=== PATIENT | male | born 1985 | race Caucasian/White ===

== ENCOUNTER 2021-03-05 16:34 | Emergency (ER) | payer OTHER ==
[~2021-03-05] VITALS: Ht 180.3 cm; Wt 103.0 kg
--- NOTE | 2021-03-05 16:56 | NUR ---
TO ER BED 7, C/O ABDOMINAL PAIN THEN LIQUID STOOLS AFTER MEALS X3 DAYS, AAOX3, BREATHING EVEN AND NON LABORED, AWAITING MD GAYLE
--- NOTE | 2021-03-05 17:29 | NUR ---
IV ESTABLISHED L AC 20G. LABS WERE COLLECTED AND SENT.
[2021-03-05] MEDS ORDERED: IV NS 0.9% 1,000 ML BAG IV ONE (17:30)
[2021-03-05] MEDS: ONDANSETRON HCL/PF 4 MG/2 ML VIAL IVP ONE ×2 (17:30→17:58)
[2021-03-05] MEDS ORDERED: ONDANSETRON HCL/PF 4 MG/2 ML VIAL ONE (17:36)
--- NOTE | 2021-03-05 17:42 | NUR ---
ULTRASOUND AT BEDSIDE
--- NOTE | 2021-03-05 17:57 | NUR ---
URINE COLLECTED AND SENT TO LAB
[2021-03-05 18:01] LABS: BASOPHILS % (AUTO) 0.4 % (0.0-2.0); EOSINOPHILS % (AUTO) 2.3 % (0.0-6.0); HEMATOCRIT 42 % (39-51); HEMOGLOBIN 14.2 g/dL (13.5-17.5); LYMPHOCYTES # (AUTO) 2.2 K/uL (0.8-4.8); LYMPHOCYTES % (AUTO) 29.4 % (20.0-44.0); MEAN CORPUSCULAR HGB CONC 34 g/dl (31.0-36.0); MEAN CORPUSCULAR VOLUME 94 fL (80-96); MONOCYTES # (AUTO) 0.6 K/uL (0.1-1.30); MONOCYTES % (AUTO) 8.5 % (2.0-12.0); NEUTROPHILS # (AUTO) 4.4 K/uL (1.8-8.9); NEUTROPHILS % (AUTO) 59.4 % (43.0-81.0); PLATELET COUNT (AUTO) 262 K/uL (150-450); RED BLOOD CELL COUNT(AUTO) 4.44 MIL/uL (4.5-6.0); WHITE BLOOD COUNT (AUTO) 7.5 K/uL (4.3-11.0)
[2021-03-05 18:08] LABS: CALCIUM, SERUM 8.8 mg/dL (8.5-10.1)
[2021-03-05 18:28] LABS: BILIRUBIN,URINE Negative (NEGATIVE); COLOR,URINE YELLOW (YELLOW); LEUKOCYTE ESTERASE ,URINE Negative (NEGATIVE); NITRITE, URINE Negative (NEGATIVE); PROTEIN,URINE Negative (NEGATIVE); UGLUCOSE Negative (NEGATIVE); UROBILINOGEN,URINE 0.2 EU/dL (0.2)
[2021-03-05] MEDS ORDERED: FAMOTIDINE/PF INJ 20 MG/2 ML VIAL IV ONE (18:30)
[2021-03-05 18:40] VITALS: BP 129/72
--- NOTE | 2021-03-05 18:40 | NUR ---
IV removed. Catheter intact and site benign. Pressure and 4x4 applied to site. No bleeding noted.Patient discharged to home in stable condition. Written and verbal after care instructions given. Patient verbalizes understanding of instruction.
== END 2021-03-09 19:01 | disposition home or self-care (01) ==
LOC: ER 16:42
DX: K52.9 Noninfective gastroenteritis and colitis, unspecified (principal)
CPT/HCPCS: 36415; 76700; 80048; 81003; 83690; 85025; 96360; 99284; J2405; J7030

== ENCOUNTER 2021-03-19 18:13 | Emergency (ER) | payer OTHER ==
[~2021-03-19] VITALS: Ht 180.3 cm; Wt 103.9 kg
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
[2021-03-19] MEDS ORDERED: IBUP-1955 PO (19:36)
[2021-03-19] MEDS ORDERED: HYDR-4303 PO (19:36)
--- NOTE | 2021-03-19 19:57 | NUR ---
Patient discharged to home in stable condition. Written and verbal after care instructions given. Patient verbalizes understanding of instruction.
[2021-03-19 19:58] VITALS: BP 133/83
== END 2021-03-19 19:58 | disposition home or self-care (01) ==
LOC: ER 18:16
DX: S52.121A Displaced fracture of head of right radius, initial encounter for closed fracture (principal); V28.4XXA Motorcycle driver injured in noncollision transport accident in traffic accident, initial encounter; Y93.89 Activity, other specified; Y92.410 Unspecified street and highway as the place of occurrence of the external cause; Y99.8 Other external cause status
CPT/HCPCS: 73030-TC; 73060-TC; 73080-TC; 73090-TC

== ENCOUNTER 2023-08-01 17:52 | Emergency (ER) | payer OTHER ==
[~2023-08-01] VITALS: Ht 180.3 cm; Wt 106.6 kg
[~2023-08-01 17:52] MED LIST: HYDR-4303 PO; IBUP-1955 PO
[2023-08-01 18:58] VITALS: BP 132/77; TEMP 98.8; O2SAT 100
== END 2023-08-01 19:24 | disposition home or self-care (01) ==
LOC: ER 17:57
DX: F41.0 Panic disorder [episodic paroxysmal anxiety] (principal); F41.9 Anxiety disorder, unspecified; F12.90 Cannabis use, unspecified, uncomplicated; F32.A Depression, unspecified; Z60.2 Problems related to living alone

== ENCOUNTER 2024-10-05 05:13 | Emergency (ER) | payer BC ==
[~2024-10-05] VITALS: Ht 175.3 cm; Wt 77.1 kg
[2024-10-05] MEDS ORDERED: LORAZEPAM INJ 2 MG/ML VIAL ONE ×3 (06:09→07:37)
[2024-10-05] MEDS: LORAZEPAM INJ 2 MG/ML VIAL IM ONE ×2 (06:32→06:49)
[2024-10-05 06:40] VITALS: TEMP 98.6
[2024-10-05 07:03] LABS: PLATELET COUNT (AUTO) 344 K/uL (150-450); RED BLOOD CELL COUNT(AUTO) 4.62 MIL/uL (4.5-6.0); RED CELL DISTRIBUTION WIDTH 12.7 % (11.5-15.0); WHITE BLOOD COUNT (AUTO) 9.7 K/uL (4.3-11.0)
[2024-10-05 07:12] LABS: CALCIUM, SERUM 8.7 mg/dL (8.5-10.1); CREATININE 1.3 mg/dL (0.6-1.3); SODIUM SERUM 140 mmol/L (136-145); UREA NITROGEN, BLOOD 13 mg/dL (7-18)
[2024-10-05] MEDS: IV NS 0.9% 1,000 ML BAG IV ONE (07:22)
[2024-10-05] MEDS: LORAZEPAM INJ 2 MG/ML VIAL IV ONE (07:28)
[2024-10-05 09:33] VITALS: BP 68/66; O2SAT 98
== END 2024-10-05 09:33 | disposition home or self-care (01) ==
LOC: ER 05:22
DX: F41.0 Panic disorder [episodic paroxysmal anxiety] (principal); F15.10 Other stimulant abuse, uncomplicated; F20.9 Schizophrenia, unspecified; F31.9 Bipolar disorder, unspecified; Z79.899 Other long term (current) drug therapy; Z60.2 Problems related to living alone
CPT/HCPCS: 99285; 96374; 71045; 96361; 93005; 85025; 80048; 36415; 84484 ×2; 96372; J2060 ×2; J7030